=== PATIENT | male | born 1975 | race Caucasian/White ===

== ENCOUNTER 2021-02-08 11:24 | Emergency (ER) | payer OTHER ==
[~2021-02-08] VITALS: Ht 182.9 cm; Wt 81.5 kg
[2021-02-08 11:50] VITALS: BP 119/74
--- NOTE | 2021-02-08 13:52 | NUR ---
PT AMBULATORY TO ROOM FROM TRIAGE.
--- NOTE | 2021-02-08 13:54 | NUR ---
DR NICHOLS IN TO SEE PT.
[2021-02-08] MEDS ORDERED: IBUPROFEN 600 MG TABLET ONE (13:56)
[2021-02-08] MEDS ORDERED: IBUPROFEN 600 MG TABLET PO ONE (14:00)
--- NOTE | 2021-02-08 14:02 | NUR ---
IBUPROFEN, ICE PACK, AND ARM SLING PROVIDED. AWAITING DC PAPERWORK.
== END 2021-02-08 14:21 | disposition home or self-care (01) ==
LOC: ED 14:00
DX: S56.912A Strain of unspecified muscles, fascia and tendons at forearm level, left arm, initial encounter (principal); X50.1XXA Overexertion from prolonged static or awkward postures, initial encounter; Y93.89 Activity, other specified; Y92.89 Other specified places as the place of occurrence of the external cause; Y99.8 Other external cause status
CPT/HCPCS: 99283